=== PATIENT | male | born 1940 | race Caucasian/White ===

== ENCOUNTER 2018-11-25 18:07 | Emergency (ER) | payer OTHER, BC ==
[2018-11-25 18:15] VITALS: BP 116/86; PULSE 75; BMI 32.6
--- NOTE | 2018-11-25 18:16 | PDOC ---
Rapid Medical Evaluation Chief Complaint: Pain Time Seen by Provider: 11/25/18 18:10 Medical Evaluation: Allergies Allergy/AdvReac Type Severity Reaction Status Date / Time No Known Allergies Allergy Verified 11/25/18 18:13 11/25/18 18:13 The patient presents with a chief complaint of: fell and tripped landing on his left face on 12pm I have performed a brief in-person evaluation of this patient Pertinent physical exam findings: vss, large hematoma to left face The patient will proceed to the ED for further evaluation. Discharge Disposition - Diagnosis Renal colic on right side Facial contusion Qualifiers: Encounter type: initial encounter Qualified Code(s): S00.83XA - Contusion of other part of head, initial encounter - Discharge Dispostion Disposition: HOME Condition at time of disposition: Improved - Prescriptions Prescriptions: Oxycodone HCl/Acetaminophen [Percocet 5-325 mg Tablet] 1 - 2 tab PO Q6H PRN #20 tab MDD 8 tabs PRN Reason: Pain Tamsulosin HCl [Flomax] 0.4 mg PO DAILY #5 cap.er.24h - Referrals Referrals: Rico Baker MD [Staff Physician] - - Patient Instructions Printed Discharge Instructions: DI for Kidney Stones, DI for Contusion Additional Instructions: Activity as tolerated. Stay hydrated. Blood tests and an EKG showed no acute abnormalities in the heart. A CT of the head/face/neck showed no evidence of brain injury or face/neck fractures. The large bruise/contusion on your forehead will resolve on its own over the next two weeks. Ice the affected areas for 20 minutes every 3-4 hours to reduce swelling. The bruising and swelling may extend around the eye, which is normal. Apply bacitracin or neosporin to the abrasions twice daily until healed - avoid soaking or scrubbing. A CT of the abdomen showed two stones in the R ureter (5mm and 2mm), which are causing your flank pain. Take percocet as prescribed as needed for pain - this medication can make you lightheaded, so take proper precautions. Take flomax as prescribed to help pass the stone. Continue your medications as previously prescribed by your physician. You should follow up with your primary doctor as soon as possible regarding today's emergency department visit. If you need a urologist nearby, consider calling Dr. Baker. Return to the emergency department for any new or concerning symptoms, particularly persistent or worsening pain, fever or chills, difficulty urinating , severe headache/confusion/vomiting, persistent or worsening chest pain or shortness of breath. - Post Discharge Activity
[2018-11-25 18:53] LABS: BASO % 0.6 % (0-2.0); EOS % 3.5 % (0-4.5); HEMATOCRIT 42.3 % (35.4-49); HEMOGLOBIN 14.5 GM/dL (11.7-16.9); LYMPH % 20.6 % (8-40); MCH 31.3 pg (25.7-33.7); MCHC 34.2 g/dl (32.0-35.9); MEAN CELL VOLUME 91.5 fl (80-96); MEAN PLT VOLUME 7.9 fl (7.5-11.1); MONO % 10.5 % (3.8-10.2); NEUT % 64.8 % (42.8-82.8); PLATELET COUNT 168 K/MM3 (134-434); RBC 4.63 M/mm3 (4.00-5.60); RDW 15.5 % (11.9-15.9); WHITE BLOOD COUNT 5.4 K/mm3 (4.0-10.0)
[2018-11-25] MEDS ORDERED: ACETAMINOPHEN 1000 MG/100 ML VIAL (NON FORMULARY) IVPB ONE (18:59)
[2018-11-25] MEDS ORDERED: ACETAMINOPHEN INJECTION 100 ML IVPB ONE (19:00)
[2018-11-25] MEDS ORDERED: ONDANSETRON 4 MG/2 ML VIAL IVPUSH ONE (19:07)
[2018-11-25 19:10] LABS: INR 1.08 (0.83-1.09); PROTHROMBIN TIME (PATIENT) 12.7 SEC (9.7-13.0)
[2018-11-25] MEDS ORDERED: ONDANSETRON 4 MG/2 ML VIAL ONE (19:20)
[2018-11-25 19:26] LABS: ALBUMIN 3.7 g/dl (3.4-5.0); ALK PHOS 94 U/L (45-117); ANION GAP 8 MMOL/L (8-16); BILIRUBIN,TOTAL 0.4 mg/dL (0.2-1); BLOOD UREA NITROGEN 20 mg/dL (7-18); CALCIUM 9.2 mg/dL (8.5-10.1); CHLORIDE 102 mmol/L (98-107); CO2 28 mmol/L (21-32); CREATININE 1.3 mg/dL (0.55-1.3); GLUCOSE,RANDOM 171 mg/dL (74-106); MAGNESIUM 1.5 mg/dL (1.8-2.4); POTASSIUM 4.1 mmol/L (3.5-5.1); SGOT/AST 33 U/L (15-37); SGPT/ALT 43 U/L (13-61); SODIUM 138 mmol/L (136-145); TOT PROT 7.3 g/dl (6.4-8.2)
--- NOTE | 2018-11-25 19:54 | PDOC ---
History of Present Illness <Osman Patton - Last Filed: 11/26/18 00:08> - General History Source: Patient, Family Exam Limitations: No Limitations - History of Present Illness Initial Comments: 11/25/18 20:01 The patient is a 77M with a PMH of HTN, HLD, stents x 3 on plavix, who presents to the ER after falling and hitting his head. The patient states that he was picking up his dog's feces from the ground when he lost balance and fell forward. He hit his head and his R knuckles. He denies LOC, CP, SOB, nausea, vomiting, numbness, tingling, or weakness, palpitations, lightheadedness, before , during, or after the fall. Upon arrival to our ED, the patient states that he had an episode of chest tightness which was relieved by nitroglycerin. He also developed sharp R flank pain which radiates down his abdomen anteriorly. He describes this pain as similar to his kidney stone which he had 20 years ago. <Celestino Huggins - Last Filed: 11/26/18 00:19> - General Chief Complaint: Pain Stated Complaint: HEAD INJURY/CHEST PAIN Time Seen by Provider: 11/25/18 18:10 Past History <Osman Patton - Last Filed: 11/26/18 00:08> - Past Medical History Cardiac Disorders: Yes CVA: Yes (x's 2) COPD: No HTN: Yes Hypercholesterolemia: Yes Kidney Stones: Yes - Surgical History Cardiac Surgery: Yes - Suicide/Smoking/Psychosocial Hx Smoking History: Smoker current status UNK <Celestino Huggins - Last Filed: 11/26/18 00:19> - Past Medical History Allergies/Adverse Reactions: Allergies Allergy/AdvReac Type Severity Reaction Status Date / Time No Known Allergies Allergy Verified 11/25/18 18:13 Home Medications: Ambulatory Orders Aspirin 81 mg PO DAILY 11/25/18 Atorvastatin Ca [Lipitor] mg PO HS 11/25/18 Clopidogrel Bisulfate [Plavix -] 75 mg PO DAILY 11/25/18 Levothyroxine [Synthroid -] mcg PO DAILY 11/25/18 Losartan Potassium mg PO DAILY 11/25/18 Metoprolol Succinate [Toprol Xl -] mg PO ASDIR 11/25/18 Nitroglycerin [Nitrostat] 0.4 mg SL ONCE 11/25/18 Oxycodone HCl/Acetaminophen [Percocet 5-325 mg Tablet] 1 - 2 tab PO Q6H PRN #20 tab MDD 8 tabs 11/25/18 Tamsulosin HCl [Flomax] 0.4 mg PO DAILY #5 cap.er.24h 11/25/18 Review of Systems - Review of Systems Able to Perform ROS?: Yes Comments:: 11/25/18 20:10 GENERAL/CONSTITUTIONAL: No fever or chills. No weakness. HEAD, EYES, EARS, NOSE AND THROAT: No change in vision. No ear pain or discharge. No sore throat. CARDIOVASCULAR: + for chest pain. No palpitations or lightheadedness. RESPIRATORY: No cough, wheezing, shortness of breath, or hemoptysis. GASTROINTESTINAL: + for abdominal pain. No nausea, vomiting, diarrhea, or constipation. GENITOURINARY: No dysuria, frequency, hematuria, or change in urination. MUSCULOSKELETAL: No joint or muscle swelling or pain. No neck or back pain. SKIN: + for hematoma over L forehead and abrasions. No rash or lesions. NEUROLOGIC: No headache, numbness, tingling, focal weakness, loss of consciousness, or change in strength/sensation. Is the patient limited Tajik proficient: No <Celestino Huggins - Last Filed: 11/26/18 00:19> *Physical Exam - Vital Signs Last Vital Signs Temp Pulse Resp BP Pulse Ox 75 20 116/86 95 11/25/18 18:13 11/25/18 18:13 11/25/18 18:13 11/25/18 18:13 <Osman Patton - Last Filed: 11/26/18 00:08> - Vital Signs Last Vital Signs Temp Pulse Resp BP Pulse Ox 75 20 116/86 95 11/25/18 18:13 11/25/18 18:13 11/25/18 18:13 11/25/18 18:13 - Physical Exam Comments: 11/25/18 20:12 GENERAL: Well developed, well nourished. Awake and alert. No acute distress. HEENT: 2cm hematoma w/ abrasion over L forehead. Hearing grossly normal. Moist mucous membranes. PERRLA, EOMI. No conjunctival pallor. Sclera are non-icteric. NECK: Supple. Full ROM. No JVD. CARDIOVASCULAR: Regular rate and rhythm. No murmurs, rubs, or gallops. PULMONARY: No evidence of respiratory distress. Lungs clear to auscultation bilaterally. No wheezing, rales or rhonchi. ABDOMINAL: Soft. Mild TTP over RLQ. Non-distended. No rebound or guarding. GENITOURINARY: R CVA tenderness. MUSCULOSKELETAL: Normal range of motion at all joints. No bony deformities or tenderness. EXTREMITIES: No cyanosis. No clubbing. No edema. No calf tenderness or swelling. SKIN: Warm and dry. Normal capillary refill. No rashes. No jaundice. NEUROLOGICAL: Alert, awake, appropriate. Cranial nerves 2-12 grossly intact. Moving all 4 extremities. Normal speech. Gait is normal without ataxia. PSYCHIATRIC: Cooperative. Good eye contact. Appropriate mood and affect. <Celestino Huggins - Last Filed: 11/26/18 00:19> Moderate Sedation - Procedure Monitoring Vital Signs: Procedure Monitoring Vital Signs Temperature Pulse Rate 75 11/25/18 18:13 Respiratory Rate 20 11/25/18 18:13 Blood Pressure 116/86 11/25/18 18:13 O2 Sat by Pulse Oximetry (%) 95 11/25/18 18:13 <Osman Patton - Last Filed: 11/26/18 00:08> - Procedure Monitoring Vital Signs: Procedure Monitoring Vital Signs Temperature Pulse Rate 75 11/25/18 18:13 Respiratory Rate 20 11/25/18 18:13 Blood Pressure 116/86 11/25/18 18:13 O2 Sat by Pulse Oximetry (%) 95 11/25/18 18:13 <Celestino Huggins - Last Filed: 11/26/18 00:19> ED Treatment Course - LABORATORY CBC & Chemistry Diagram: 11/25/18 18:30 11/25/18 18:30 - ADDITIONAL ORDERS Additional order review: Laboratory Results 11/25/18 11/25/18 11/25/18 22:45 20:35 18:30 PT with INR INR Sodium 138 Potassium 4.1 Chloride 102 Carbon Dioxide 28 Anion Gap 8 BUN 20 H Creatinine 1.3 Creat Clearance w eGFR 53.82 Random Glucose 171 H Calcium 9.2 Magnesium 1.5 L Total Bilirubin 0.4 AST 33 ALT 43 Alkaline Phosphatase 94 Creatine Kinase 141 Troponin I 0.02 0.02 Total Protein 7.3 Albumin 3.7 Urine Color Ltyellow Urine Appearance Clear Urine pH 5.0 Ur Specific [place] 1.018 Urine Protein Negative Urine Glucose (UA) Negative Urine Ketones Negative Urine Blood 1+ H Urine Nitrite Negative Urine Bilirubin Negative Urine Urobilinogen Negative Ur Leukocyte Esterase Trace Urine WBC (Auto) 16 Urine RBC (Auto) 16 Ur Epithelial Cells Rare Urine Bacteria Rare Urine Mucus Rare 11/25/18 18:30 PT with INR 12.70 INR 1.08 Sodium Potassium Chloride Carbon Dioxide Anion Gap BUN Creatinine Creat Clearance w eGFR Random Glucose Calcium Magnesium Total Bilirubin AST ALT Alkaline Phosphatase Creatine Kinase Troponin I Total Protein Albumin Urine Color Urine Appearance Urine pH Ur Specific [place] Urine Protein Urine Glucose (UA) Urine Ketones Urine Blood Urine Nitrite Urine Bilirubin Urine Urobilinogen Ur Leukocyte Esterase Urine WBC (Auto) Urine RBC (Auto) Ur Epithelial Cells Urine Bacteria Urine Mucus 11/25/18 18:30 RBC 4.63 MCV 91.5 MCHC 34.2 RDW 15.5 MPV 7.9 Neutrophils % 64.8 Lymphocytes % 20.6 Monocytes % 10.5 H Eosinophils % 3.5 Basophils % 0.6 - Medications Given in the ED: ED Medications Discontinued Medications Generic Name Dose Route Start Last Admin Trade Name Carlosq PRN Reason Stop Dose Admin Acetaminophen 1,000 mg 11/25/18 18:59 11/25/18 19:07 Ofirmev Injection - IVPB 11/25/18 19:00 1,000 mg ONCE ONE Administration Hydromorphone HCl 0.5 mg 11/25/18 22:40 11/25/18 23:08 Dilaudid Injection - IVPUSH 11/25/18 22:41 0.5 mg ONCE ONE Administration Morphine Sulfate 4 mg 11/25/18 21:39 11/25/18 21:52 Morphine Injection - IVPUSH 11/25/18 21:40 4 mg ONCE ONE Administration Ondansetron HCl 4 mg 11/25/18 19:07 11/25/18 21:41 Zofran Injection IVPUSH 11/25/18 19:08 Not Given ONCE ONE Sodium Chloride 1,000 ml 11/25/18 21:17 11/25/18 21:53 Normal Saline - IV 11/25/18 21:18 1,000 ml ONCE ONE Administration Tamsulosin HCl 0.4 mg 11/25/18 21:17 11/25/18 21:41 Flomax - PO 11/25/18 21:18 0.4 mg ONCE ONE Administration Tramadol HCl 50 mg 11/25/18 20:20 11/25/18 21:41 Ultram - PO 11/25/18 20:21 50 mg ONCE ONE Administration <Osman Patton - Last Filed: 11/26/18 00:08> - LABORATORY CBC & Chemistry Diagram: 11/25/18 18:30 11/25/18 18:30 - ADDITIONAL ORDERS Additional order review: Laboratory Results 11/25/18 11/25/18 18:30 18:30 PT with INR 12.70 INR 1.08 Sodium 138 Potassium 4.1 Chloride 102 Carbon Dioxide 28 Anion Gap 8 BUN 20 H Creatinine 1.3 Creat Clearance w eGFR 53.82 Random Glucose 171 H Calcium 9.2 Magnesium 1.5 L Total Bilirubin 0.4 AST 33 ALT 43 Alkaline Phosphatase 94 Creatine Kinase 141 Troponin I 0.02 Total Protein 7.3 Albumin 3.7 11/25/18 18:30 RBC 4.63 MCV 91.5 MCHC 34.2 RDW 15.5 MPV 7.9 Neutrophils % 64.8 Lymphocytes % 20.6 Monocytes % 10.5 H Eosinophils % 3.5 Basophils % 0.6 - RADIOLOGY Radiology Studies Ordered: Category Date Time Status ABDOMEN & PELVIS CT W/O CONTR [CT] Stat CT Scan 11/25/18 18:49 Taken - Medications Given in the ED: ED Medications Discontinued Medications Generic Name Dose Route Start Last Admin Trade Name Freq PRN Reason Stop Dose Admin Acetaminophen 1,000 mg 11/25/18 18:59 11/25/18 19:07 Ofirmev Injection - IVPB 11/25/18 19:00 1,000 mg ONCE ONE Administration <Celestino Huggins - Last Filed: 11/26/18 00:19> Medical Decision Making - Medical Decision Making 11/25/18 19:54 The patient is a 77M with MMP who presents to the ER after sustaining a head injury, concerning for ICH d/t plavix use. Pt developed chest tightness and R flank pain while in the ED. EKG shows LBBB without STD or MARLON. CT head negative. CT c-spine negative. CTAP: Adjacent 0.5 cm and 0.2 cm proximal right ureteral calculi are noted with resultant mild hydronephrosis. Nonobstructing bilateral 0.2 cm renal calculi. 4 cm infrarenal aortic aneurysm. 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 Diffuse hepatic steatosis. Prostate enlargement which is at least moderate. Left inguinal hernia containing fat only. Giving fluids and will give tramadol for pain control in addition to IV tylenol. Will monitor patient for 2 troponins. 11/25/18 20:35 CBC, CMP, trop negative. CT facial bones negative. <Celestino Huggins - Last Filed: 11/26/18 00:19> *DC/Admit/Observation/Transfer <Osman Patton - Last Filed: 11/26/18 00:08> <Celestino Huggins - Last Filed: 11/26/18 00:19> Diagnosis at time of Disposition: Renal colic on right side Facial contusion Qualifiers: Encounter type: initial encounter Qualified Code(s): S00.83XA - Contusion of other part of head, initial encounter - Discharge Dispostion Disposition: HOME - Prescriptions Prescriptions: Oxycodone HCl/Acetaminophen [Percocet 5-325 mg Tablet] 1 - 2 tab PO Q6H PRN #20 tab MDD 8 tabs PRN Reason: Pain Tamsulosin HCl [Flomax] 0.4 mg PO DAILY #5 cap.er.24h - Referrals Referrals: Rico Baker MD [Staff Physician] - - Patient Instructions Printed Discharge Instructions: DI for Kidney Stones, DI for Contusion Additional Instructions: Activity as tolerated. Stay hydrated. Blood tests and an EKG showed no acute abnormalities in the heart. A CT of the head/face/neck showed no evidence of brain injury or face/neck fractures. The large bruise/contusion on your forehead will resolve on its own over the next two weeks. Ice the affected areas for 20 minutes every 3-4 hours to reduce swelling. The bruising and swelling may extend around the eye, which is normal. Apply bacitracin or neosporin to the abrasions twice daily until healed - avoid soaking or scrubbing. A CT of the abdomen showed two stones in the R ureter (5mm and 2mm), which are causing your flank pain. Take percocet as prescribed as needed for pain - this medication can make you lightheaded, so take proper precautions. Take flomax as prescribed to help pass the stone. Continue your medications as previously prescribed by your physician. You should follow up with your primary doctor as soon as possible regarding today's emergency department visit. If you need a urologist nearby, consider calling Dr. Baker. Return to the emergency department for any new or concerning symptoms, particularly persistent or worsening pain, fever or chills, difficulty urinating , severe headache/confusion/vomiting, persistent or worsening chest pain or shortness of breath.
[2018-11-25] MEDS ORDERED: traMADol HCL 50 MG TABLET PO ONE (20:20)
--- NOTE | 2018-11-25 20:27 | PDOC ---
Attending Attestation - Medical Decision Making Documentation prepared by ALEXIS Tan, acting as ophthalmic medical technologist for Osman Patton MD. 11/25/18 20:56 <Dianne Bell - Last Filed: 11/25/18 20:56> - Resident Resident Name: Celestino Huggins - ED Attending Attestation I have performed the following: I have examined & evaluated the patient, The case was reviewed & discussed with the resident, I agree w/resident's findings & plan - HPI HPI: 11/25/18 20:23 77-year-old male with cardiac history on aspirin and Plavix, also with history of kidney stones presents with 3 separate issues tonight: The patient was walking his dog, bent down to cleanup when the dog took off into the street, he grabbed his leash and fell forward striking his forehead and face on the cement. There was no loss of consciousness, lightheadedness, or syncope related to this. He has mild discomfort in the area of his forehead that was struck the ground, otherwise has no generalized headache/vision change/ speech change/focal deficit. Scraped his right hand, has no motor or sensory deficits. Tetanus was about one or 2 years ago. En route, patient noticed some right mid back pain that was somewhat acute in onset, progressive in severity and then began radiating forward to his right groin. It was associated with some nausea but no vomiting, it was very similar to past renal colic. This pain is persistent, dull in the area described. Denies any dysuria or frequency or hematuria recently. Also en route, patient developed less than 1 minute of a left chest/substernal discomfort, not associated with any dyspnea or shortness of breath or diaphoresis, resolved after taking a nitroglycerin, and he is now asymptomatic. He states this was not like his past angina, has had no exercise limitations recently, and had a normal stress test a few months ago with his hemodialysis technician in [place]. He has no complaints or concerns, cardiopulmonary perspective. - Physicial Exam PE: 11/25/18 20:27 Vital signs within normal limits General: Patient is alert and in no acute distress. Speech is clear and appropriate. Head: Nontender. Large L frontal scalp hematoma with overlying abrasion, no laceration. superficial abrasion to nose without bone ttp/deformity. HEENT: Pupils are equal round and reactive to light, extraocular movements are intact. No facial/periorbital deformity/tenderness, no septal hematoma. The oropharynx is clear. Neck: The trachea is midline, there is no stridor. There is no midline cervical spine tenderness, full range of motion of neck. Chest: Nontender, no ecchymosis or abrasions. Heart: S1-S2, regular rate and rhythm. No murmurs. Lungs: Clear to auscultation bilaterally. Symmetric chest rise. Abdomen: Soft/nontender/nondistended. Bowel sounds are normal. There is no abdominal or flank ecchymosis. No reproducible L CVAT, no rash. Back/Pelvis: There is no midline spine tenderness or step-off. Pelvis is stable and nontender. Extremities: There is no extremity deformity or joint swelling. No focal bony tenderness throughout. 2+ distal pulses throughout. Neuro: Alert and oriented x3. Cranial nerves II through XII are intact. 5 out of 5 motor strength x4 extremities. [id number] is intact. No pronator drift. Gait is stable. Skin: Forehead/nose abrasions as noted. Also superficial abrasions to dorsum of R hand. L forehead hematoma. No lacerations. Psych: Affect is appropriate. - Medical Decision Making 11/25/18 20:30 77-year-old male with 3 seemingly separate presenting complaints: mechanical fall with scalp hematoma and facial abrasions: no evidence for syncope, r/o TBI. wound care. R flank/groin pain: ? msk strain, r/o renal colic, less likely acute vascular process chest pain: fleeting and atypical, resolved. patient does not feel was cardiac, EKG with baseline LBBB without secondary signs of acute ischemic change. Does not want cardiac workup, but given risk factors will trend trop x2. CT without TBI, facial/cervical injury. ? gravel in scalp CTAP shows R prox ureteral 5mm and 2mm stones Labs wnl, first trop negative. Pain control for renal colic, wound care and FB removal, monitor and check trop2. 11/25/18 23:53 no scalp foreign body on re-exam following density on CT pain ultimately improved after iv opiates, recommended admission given proximity and size of stone but wants to go home. Will rx percocet and understands return criteria - son and at bedside. trop2 pending, will d/c if remains negative. has had no further chest complaints. 11/26/18 00:08 Trop 2 negative, patient and family requesting discharge, understands return criteria. <Osman Patton - Last Filed: 11/26/18 00:08> Heart Score/ECG Review #1 ECG reviewed & interpreted by me at: 18:18 General ECG Interpretation: Sinus Rhythm (LBBB), Normal Rate (75), No acute ischemic changes Compared to previous ECG there are: Previous ECG unavail (per patient/, pt has known LBBB) <Osman Patton - Last Filed: 11/26/18 00:08>
[2018-11-25 20:53] LABS: URINE APPEARANCE CLEAR; URINE BILIRUBIN NEGATIVE (<2.0 mg/dL); URINE COLOR LTYELLOW; URINE GLUCOSE (UA) NEGATIVE (NEGATIVE); URINE KETONE NEGATIVE (NEGATIVE); URINE LEUK ESTERASE TRACE (NEGATIVE); URINE NITRITE NEGATIVE (NEGATIVE); URINE PROTEIN NEGATIVE (NEGATIVE); URINE UROBILINOGEN NEGATIVE mg/dL (0.2-1.0)
[2018-11-25 20:58] LABS: EPI CELLS RARE /HPF (FEW); URINE BACTERIA RARE /hpf (NONE SEEN); URINE MUCUS RARE
[2018-11-25] MEDS ORDERED: SODIUM CHLORIDE 0.9% 1000 ML INFUS.BAG IV ONE (21:17)
[2018-11-25] MEDS ORDERED: traMADol HCL 50 MG TABLET ONE (21:17)
[2018-11-25] MEDS ORDERED: TAMSULOSIN HCL 0.4 MG CAP PO ONE (21:17)
[2018-11-25] MEDS ORDERED: TAMSULOSIN HCL 0.4 MG CAP ONE (21:17)
[2018-11-25] MEDS ORDERED: morphine CARPU-JECT 4 MG/1 ML DISP.SYRIN IVPUSH ONE (21:39)
[2018-11-25] MEDS ORDERED: morphine SULFATE 4 MG/ML VIAL ONE (21:43)
[2018-11-25] MEDS ORDERED: HYDROmorphone HCL CARPU-JECT 2 MG/1 ML DISP.SYRIN IVPUSH ONE (22:40)
[2018-11-25] MEDS ORDERED: HYDROmorphone HCl 2 MG/ML VIAL ONE (23:02)
[2018-11-26 00:26] VITALS: TEMP 97.9
--- NOTE | 2018-11-26 10:28 | EKG ---
Test Reason : Blood Pressure : / mmHG Vent. Rate : 075 BPM Atrial Rate : 075 BPM P-R Int : 202 ms QRS Dur : 172 ms QT Int : 480 ms P-R-T Axes : 057 -23 124 degrees QTc Int : 536 ms NORMAL SINUS RHYTHM LEFT BUNDLE BRANCH BLOCK ABNORMAL ECG NO PREVIOUS ECGS AVAILABLE Confirmed by ORLIN ROSE MD ([id number]) on 11/26/2018 10:28:38 AM Referred By: Confirmed By:ORLIN ROSE MD
== END 2018-11-26 00:32 | disposition home or self-care (01) ==
LOC: JER 18:07
PROC: 3E033NZ Introduction of Analgesics, Hypnotics, Sedatives into Peripheral Vein, Percutaneous Approach (ICD-10-PCS; principal; 2018-11-25)
PROC: 3E033NZ Introduction of Analgesics, Hypnotics, Sedatives into Peripheral Vein, Percutaneous Approach (ICD-10-PCS; 2018-11-25)
PROC: 3E033NZ Introduction of Analgesics, Hypnotics, Sedatives into Peripheral Vein, Percutaneous Approach (ICD-10-PCS; 2018-11-25)
DX: N13.2 Hydronephrosis with renal and ureteral calculous obstruction (principal); Z87.442 Personal history of urinary calculi; S00.83XA Contusion of other part of head, initial encounter; S00.81XA Abrasion of other part of head, initial encounter; W01.0XXA Fall on same level from slipping, tripping and stumbling without subsequent striking against object, initial encounter; Y93.K1 Activity, walking an animal; Y92.480 Sidewalk as the place of occurrence of the external cause; Y99.8 Other external cause status; I25.10 Atherosclerotic heart disease of native coronary artery without angina pectoris; I10 Essential (primary) hypertension; Z95.5 Presence of coronary angioplasty implant and graft; E78.5 Hyperlipidemia, unspecified; E78.00 Pure hypercholesterolemia, unspecified; Z86.73 Personal history of transient ischemic attack (TIA), and cerebral infarction without residual deficits; Z79.01 Long term (current) use of anticoagulants; Z79.82 Long term (current) use of aspirin
CPT/HCPCS: 36415; 70450-TC; 70486-TC; 71045-TC-FY; 72125-TC; 74176-TC; 80053; 81003; 81015; 82550; 83735; 84484; 85025; 85610; 87086; 87186; 93005; 93010; 99282-25; J0131; J7030